=== PATIENT | female | born 1980 | race Caucasian/White ===

== ENCOUNTER 2021-09-23 13:30 | Observation (INO) | payer OTHER ==
--- NOTE | 2021-09-23 14:07 | XR ---
EXAMINATION TYPE: XR chest 2V DATE OF EXAM: 09/23/2021 COMPARISON: None HISTORY: Difficulty breathing TECHNIQUE: Frontal and lateral views of the chest are obtained. FINDINGS: There is no focal air space opacity, pleural effusion, or pneumothorax seen. The cardiac silhouette size is within normal limits. The osseous structures are intact. IMPRESSION: No acute cardiopulmonary process.
[2021-09-23 14:40] LABS: Basophils % (A) 0 %; Eosinophils # (A) 0.1 k/uL (0-0.7); Eosinophils % (A) 1 %; HCT 37.9 % (34.0-46.0); Lymphocytes # (A) 2.6 k/uL (1.0-4.8); Lymphocytes % (A) 20 %; MCHC 34.3 g/dL (31.0-37.0); MCV 90.4 fL (80.0-100.0); Monocytes # (A) 0.3 k/uL (0-1.0); Monocytes % (A) 2 %; Neutrophils # (A) 9.9 k/uL (1.3-7.7); Neutrophils % (A) 76 %; Platelet Count 268 k/uL (150-450); RBC 4.19 m/uL (3.80-5.40); RDW 12.5 % (11.5-15.5)
[2021-09-23 14:51] LABS: ALT 21 U/L (4-34); AST 42 U/L (14-36); African American GFR (CKD) >90 (>60 ml/min/1.73 sqM); Albumin 4.2 g/dL (3.5-5.0); Alkaline Phosphatase 58 U/L (38-126); Anion Gap 9 mmol/L; Blood Urea Nitrogen 17 mg/dL (7-17); Calcium 9.3 mg/dL (8.4-10.2); Carbon Dioxide 25 mmol/L (22-30); Chloride 104 mmol/L (98-107); Glucose 93 mg/dL (74-99); Non-African American GFR(CKD) >90 (>60 ml/min/1.73 sqM); Sodium 138 mmol/L (137-145); Total Bilirubin 0.4 mg/dL (0.2-1.3); Total Protein 7.2 g/dL (6.3-8.2)
[2021-09-23 15:01] LABS: INR 0.9 (<1.2); Partial Thromboplastin Time 22.2 sec (22.0-30.0); Prothrombin Time 9.8 sec (9.0-12.0)
--- NOTE | 2021-09-23 15:16 | ED ---
General Adult HPI - General Chief complaint: Shortness of Breath Stated complaint: Chest Pain, SOB Time Seen by Provider: 09/23/21 15:10 Source: patient Mode of arrival: ambulatory Limitations: no limitations - History of Present Illness Initial comments: Patient presents to the ED with her for evaluation. Patient states that she ran down the stairs to go to the gym this morning when she suddenly became dyspneic and could not catch her breath for a while, which is very unusual for her. Patient states that she also felt that her chest was diffusely tight at that time. Patient states that her symptoms persisted for a while, and continued at the gym, so she eventually decided to come to the emergency department. Patient states that her symptoms have now improved significantly, and she feels better. Patient denies any prior history of similar symptoms, and she denies any known lung or heart disease. Patient denies smoking or drug a buse. Patient denies trauma or injury, fever or chills, headache, focal neuro deficit, neck/arm/jaw/back pain, pleuritic pain, cough or cold symptoms, palpitations, dizziness, nausea/vomiting/diaphoresis, abdominal pain, diarrhea, dysuria or urinary symptoms, decreased urine output, leg or calf swelling or pain, or any other symptoms or complaints. Patient states that she is fully vaccinated against Covid. Patient does admit to OCP use. - Related Data Home Medications Medication Instructions Recorded Confirmed Biotin 5 mg PO DAILY 09/23/21 09/23/21 Cholecalciferol [Vitamin D3 (25 50 mcg PO DAILY 09/23/21 09/23/21 Mcg = 1000 Iu)] Elinest 0.3-30 Mg-Mcg 1 tab PO DAILY 09/23/21 09/23/21 Fish Oil/Dha/Epa [Fish Oil 1,200 1 cap PO DAILY 09/23/21 09/23/21 mg Fish Oil] Loratadine [Claritin] 10 mg PO DAILY 09/23/21 09/23/21 Turmeric Root Extract [Turmeric] 500 mg PO DAILY 09/23/21 09/23/21 Allergies Allergy/AdvReac Type Severity Reaction Status Date / Time No Known Allergies Allergy Verified 09/23/21 15:58 Review of Systems ROS Statement: Those systems with pertinent positive or pertinent negative responses have been documented in the HPI. ROS Other: All systems not noted in ROS Statement are negative. Past Medical History History of Any Multi-Drug Resistant Organisms: None Reported Additional Past Surgical History / Comment(s): left lower leg amputation Past Psychological History: No Psychological Hx Reported Smoking Status: Never smoker Past Alcohol Use History: Occasional Past Drug Use History: None Reported General Exam Limitations: no limitations General appearance: alert, in no apparent distress Head exam: Present: atraumatic, normocephalic Eye exam: Present: normal appearance, EOMI ENT exam: Present: mucous membranes moist Neck exam: Present: other (Trachea is in midline) Respiratory exam: Present: normal lung sounds bilaterally. Absent: respiratory distress, wheezes, rales, rhonchi, stridor, chest wall tenderness Cardiovascular Exam: Present: regular rate, normal rhythm, normal heart sounds, other (Normal radial pulses bilaterally) GI/Abdominal exam: Present: soft. Absent: distended, tenderness, guarding Extremities exam: Present: other (Negative Homans sign bilaterally). Absent: tenderness, pedal edema, calf tenderness Neurological exam: Present: alert, oriented X3. Absent: motor sensory deficit Psychiatric exam: Present: normal affect, normal mood Skin exam: Present: warm, dry, intact, normal color Course Vital Signs 09/23/21 13:33 Temperature 97.9 F Pulse Rate 69 Respiratory 18 Rate Blood Pressure 151/84 O2 Sat by Pulse 99 Oximetry - Reevaluation(s) Reevaluation #1: 09/23/21 18:24 Patient remains alert and breathing comfortably with a normal room air oxygen saturation. Patient denies development of any new symptoms while in the ED. Patient and are aware the patient's test results, and they both agree with initiating anticoagulation therapy and hospital admission at this time. 09/23/21 18:25 Case, H&P and test results were discussed with Dr. Cortez. She recommends IV heparin anticoagulation (over LMWH). She accepts hospital admission. She has no further recommendations at this time. EKG Findings - EKG Comments: EKG Findings:: Normal sinus rhythm, ventricular rate of 71 bpm, no ectopy, normal MD and QRS intervals, normal QT interval, normal axis, no ST or T-wave abnormality Medical Decision Making - Medical Decision Making Patient's CT angiogram chest with IV contrast demonstrates bilateral pulmonary emboli. Patient is however hemodynamically stable and not hypoxic. Dr. Cortez has accepted hospital admission. Heparin anticoagulation treatment was started in the ED. Patient and both agree with hospital admission at this time. - Lab Data Result diagrams: 09/23/21 14:21 09/23/21 14:21 Lab Results 09/23/21 09/23/21 12 Range/Units 14:21 14:21 14:21 WBC 13.0 H (3.8-10.6) k/uL RBC 4.19 (3.80-5.40) m/uL Hgb 13.0 (11.4-16.0) gm/dL Hct 37.9 (34.0-46.0) % MCV 90.4 (80.0-100.0) fL MCH 31.0 (25.0-35.0) pg MCHC 34.3 (31.0-37.0) g/dL RDW 12.5 (11.5-15.5) % Plt Count 268 (150-450) k/uL MPV 8.0 Neutrophils % 76 % Lymphocytes % 20 % Monocytes % 2 % Eosinophils % 1 % Basophils % 0 % Neutrophils # 9.9 H (1.3-7.7) k/uL Lymphocytes # 2.6 (1.0-4.8) k/uL Monocytes # 0.3 (0-1.0) k/uL Eosinophils # 0.1 (0-0.7) k/uL Basophils # 0.0 (0-0.2) k/uL PT 9.8 (9.0-12.0) sec INR 0.9 (<1.2) APTT 22.2 (22.0-30.0) sec D-Dimer (<0.60) mg/L FEU Sodium 138 (137-145) mmol/L Potassium 4.0 (3.5-5.1) mmol/L Chloride 104 (98-107) mmol/L Carbon Dioxide 25 (22-30) mmol/L Anion Gap 9 mmol/L BUN 17 (7-17) mg/dL Creatinine 0.74 (0.52-1.04) mg/dL Est GFR (CKD-EPI)AfAm >90 (>60 ml/min/1.73 sqM) Est GFR (CKD-EPI)NonAf >90 (>60 ml/min/1.73 sqM) Glucose 93 (74-99) mg/dL Calcium 9.3 (8.4-10.2) mg/dL Total Bilirubin 0.4 (0.2-1.3) mg/dL AST 42 H (14-36) U/L ALT 21 (4-34) U/L Alkaline Phosphatase 58 (38-126) U/L Troponin I (0.000-0.034) ng/mL Total Protein 7.2 (6.3-8.2) g/dL Albumin 4.2 (3.5-5.0) g/dL HCG, Qual 09/23/21 09/23/21 09/23/21 Range/Units 14:21 14:21 14:21 WBC (3.8-10.6) k/uL RBC (3.80-5.40) m/uL Hgb (11.4-16.0) gm/dL Hct (34.0-46.0) % MCV (80.0-100.0) fL MCH (25.0-35.0) pg MCHC (31.0-37.0) g/dL RDW (11.5-15.5) % Plt Count (150-450) k/uL MPV Neutrophils % % Lymphocytes % % Monocytes % % Eosinophils % % Basophils % % Neutrophils # (1.3-7.7) k/uL Lymphocytes # (1.0-4.8) k/uL Monocytes # (0-1.0) k/uL Eosinophils # (0-0.7) k/uL Basophils # (0-0.2) k/uL PT (9.0-12.0) sec INR (<1.2) APTT (22.0-30.0) sec D-Dimer 5.79 H (<0.60) mg/L FEU Sodium (137-145) mmol/L Potassium (3.5-5.1) mmol/L Chloride (98-107) mmol/L Carbon Dioxide (22-30) mmol/L Anion Gap mmol/L BUN (7-17) mg/dL Creatinine (0.52-1.04) mg/dL Est GFR (CKD-EPI)AfAm (>60 ml/min/1.73 sqM) Est GFR (CKD-EPI)NonAf (>60 ml/min/1.73 sqM) Glucose (74-99) mg/dL Calcium (8.4-10.2) mg/dL Total Bilirubin (0.2-1.3) mg/dL AST (14-36) U/L ALT (4-34) U/L Alkaline Phosphatase (38-126) U/L Troponin I <0.012 (0.000-0.034) ng/mL Total Protein (6.3-8.2) g/dL Albumin (3.5-5.0) g/dL HCG, Qual Not Detected - Radiology Data Radiology results: report reviewed (Chest x-ray: No acute cardiopulmonary process.) CT angiogram chest with IV contrast: Bilateral pulmonary emboli. There is filling defect in the right lower lobe pulmonary artery involving the lateral and posterior basal segment branches. There is also filling defect in the right upper lobe pulmonary artery. There is filling defect in the left lower lobe pulmonary artery in the lateral basal segment branch. No evidence of right heart strain. Disposition Clinical Impression: Bilateral pulmonary embolism Disposition: ADMITTED IP TO THIS [facility] Condition: Stable Is patient prescribed a controlled substance at d/c from ED?: No Referrals: Gray Henry MD [Primary Care Provider] - 1-2 days Time of Disposition: 18:42
[2021-09-23] MEDS ORDERED: SODIUM CHLORIDE 0.9% 500 ML 500 ML IV ONE (16:32)
--- NOTE | 2021-09-23 18:07 | CT ---
EXAMINATION TYPE: CT angio chest DATE OF EXAM: 09/23/2021 COMPARISON: None HISTORY: Dyspnea, chest pain and elevated d-dimer. CT DLP: 338.8 mGycm Automated exposure control for dose reduction was used. CONTRAST: Performed with IV Contrast, patient injected with 75ml mL of Isovue 370. Images obtained from the thoracic inlet to the diaphragm with IV contrast. There are 3-D post process ed images. The lungs are clear of consolidation. There is no evidence of a pulmonary mass. There is no mediastin al adenopathy. There are no hilar masses. There is no pleural effusion. There is no pericardial effus ion. There is intact thoracic aorta. There is no aneurysm or dissection. There is filling defect in the right lower lobe pulmonary artery involving the lateral and posterior basal segment branches. There is also filling defect in the right upper lobe pulmonary artery. There is filling defect in the left lower lobe pulmonary artery in the lateral basal segment branch. IMPRESSION: Bilateral pulmonary emboli as above. No evidence of right heart strain. This exam was discussed with emergency room attending staff at 6:00 PM.
[2021-09-23] MEDS ORDERED: HEPARIN SODIUM 1,000 UN/ML (10ML VL) IV ONE (18:42)
[2021-09-23] MEDS ORDERED: HEPARIN SODIUM 1,000 UN/ML (10ML VL) IV PRN (18:42)
[2021-09-23] MEDS ORDERED: HEPARIN SOD,PORK IN 0.45% NACL 25,000 UNIT in 0.45% NACL 1 250ML.BAG IV SCH (18:45)
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
[2021-09-24] MEDS ORDERED: APIXABAN 5 MG TAB PO SCH ×2 (09:00→21:00)
[2021-09-24 11:03] LABS: Basophils % (A) 1 %; Eosinophils # (A) 0.2 k/uL (0-0.7); Eosinophils % (A) 3 %; HCT 38.8 % (34.0-46.0); HGB 12.7 gm/dL (11.4-16.0); Lymphocytes # (A) 2.1 k/uL (1.0-4.8); Lymphocytes % (A) 29 %; MCH 30.2 pg (25.0-35.0); MCHC 32.7 g/dL (31.0-37.0); MCV 92.2 fL (80.0-100.0); Mean Platelet Volume 8.2; Monocytes # (A) 0.2 k/uL (0-1.0); Monocytes % (A) 3 %; Neutrophils # (A) 4.5 k/uL (1.3-7.7); Neutrophils % (A) 63 %; Platelet Count 289 k/uL (150-450); RBC 4.21 m/uL (3.80-5.40); RDW 12.5 % (11.5-15.5); WBC 7.2 k/uL (3.8-10.6)
[2021-09-24 11:11] LABS: ALT 20 U/L (4-34); AST 36 U/L (14-36); African American GFR (CKD) >90 (>60 ml/min/1.73 sqM); Albumin 3.8 g/dL (3.5-5.0); Alkaline Phosphatase 49 U/L (38-126); Anion Gap 7 mmol/L; Blood Urea Nitrogen 10 mg/dL (7-17); Calcium 9.2 mg/dL (8.4-10.2); Carbon Dioxide 26 mmol/L (22-30); Chloride 106 mmol/L (98-107); Glucose 63 mg/dL (74-99); Non-African American GFR(CKD) >90 (>60 ml/min/1.73 sqM); Potassium 4.2 mmol/L (3.5-5.1); Sodium 139 mmol/L (137-145); Total Bilirubin 0.5 mg/dL (0.2-1.3); Total Protein 6.7 g/dL (6.3-8.2)
[2021-09-24 11:39] VITALS: BP 104/68; PULSE 62; RESP 16; TEMP 98.1
[2021-10-01] MEDS ORDERED: APIXABAN 5 MG TAB PO SCH (09:00)
== END 2021-09-24 12:57 | disposition home or self-care (01) ==
LOC: EC 13:30 → 3SCARD 18:44
PROVIDERS: ADMIT Internal Medicine; ATTEND Internal Medicine
DX: I26.99 Other pulmonary embolism without acute cor pulmonale (principal); D72.829 Elevated white blood cell count, unspecified; Z20.822 Contact with and (suspected) exposure to COVID-19; Z79.3 Long term (current) use of hormonal contraceptives; Z79.899 Other long term (current) drug therapy; Z87.828 Personal history of other (healed) physical injury and trauma; Z89.512 Acquired absence of left leg below knee; Z83.49 Family history of other endocrine, nutritional and metabolic diseases
CPT/HCPCS: 96376; 96361; 96365; 96366 ×2; 99285; 36415; 93005; 85379; 80053 ×2; 84484; 85025 ×2; 85610; 85730 ×2; 84703; 87635; 71046; 71275; G0378 ×2; J1644 ×2; Q9967

== ENCOUNTER → 2022-01-02 | Day surgery (SDC) | payer BC, OTHER ==
[2021-12-28 12:47] VITALS: BMI 24.3
[~2022-01-02] MED LIST: BENZOCAINE SPRAY 1 CAN TOPICAL ONE; IV FLUID CONTINUATION 400 ML IV ONE; MIDAZOLAM 2 MG/2 ML VIAL IV ONE; fentaNYL (PF) 50 MCG/ML 2 ML AMP IV ONE; fentaNYL (PF) 50 MCG/ML 2 ML AMP ONE
[2022-01-02 11:41] LABS: HCT 38.6 % (34.0-46.0); HGB 12.6 gm/dL (11.4-16.0); MCH 30.3 pg (25.0-35.0); MCHC 32.6 g/dL (31.0-37.0); MCV 93.1 fL (80.0-100.0); Mean Platelet Volume 8.2; Platelet Count 287 k/uL (150-450); RBC 4.15 m/uL (3.80-5.40); RDW 13.5 % (11.5-15.5); WBC 6.2 k/uL (3.8-10.6)
[2022-01-02 11:51] LABS: African American GFR (CKD) >90 (>60 ml/min/1.73 sqM); Anion Gap 5 mmol/L; Blood Urea Nitrogen 9 mg/dL (7-17); Carbon Dioxide 26 mmol/L (22-30); Chloride 106 mmol/L (98-107); Non-African American GFR(CKD) >90 (>60 ml/min/1.73 sqM); Potassium 3.8 mmol/L (3.5-5.1); Sodium 137 mmol/L (137-145)
[2022-01-02 12:47] VITALS: RESP 14
--- NOTE | 2022-01-02 12:48 | P.PCN ---
Date of Procedure: 01/02/22 Operative Findings: TRANSESOPHAGEAL ECHOCARDIOGRAM VALVE GRINDER: JAKOB ELAM MD, RPVI INDICATION: Rule out atrial septal defect in this 41-year-old female patient underwent recently an echo which showed possible is diffuse right sided enlargement SEDATION: Conscious sedation COMPLICATION: None LEVEL OF SEDATION Moderate with sedation length of 11 minutes PROCEDURE DESCRIPTION: After obtaining an informed consent, the patient was brought to transesophageal echocardiogram room. Pulse oximetry and heart monitors were attached to the patient. The patient throat was sprayed using lidocaine. The patient was turned into left lateral position. After that a bite guard was placed. After an appropriate conscious sedation was initiated, the transesophageal echocardiogram was advanced through a bite guard into the mid esophagus. A 2-D echocardiogram images, color Doppler images, continuous wave images, pulse-wave images, of various cardiac structure were performed. After that the transesophageal echocardiogram probe was advanced into the stomach and fixed to obtain transgastric view was. The probe was brought into the mid esophagus. Inter-atrial septum was interrogated using 2D images, color Doppler images, and then contrast study. After that transesophageal echocardiogram was withdrawn out and upon withdrawing the descending thoracic aorta all the way up to the arch was evaluated. FINDING: The left ventricular dimension and systolic function appeared to be within normal limits. EF appears to be in the range of 50-55%. The right ventricle appeared to be mildly dilated with normal function. Left atrium appears to be within normal limits for the mention mid left atrial appendage appeared to be free from any thrombus. The interatrial septum appeared to be hyperdynamic without any evidence of ASD or PFO. The right atrium appeared to be dilated. The aortic valve is trileaflet valve without stenosis with mild insufficiency. Aortic root appeared to be mildly dilated at 4.0 cm. The mitral valve seems to be normal with mild MR. Normal tricuspid valve and pulmonic valve. CONCLUSION: 1. Hyperdynamic interatrial septum without any evidence of PFO or ASD on multiple contrast injection as well as color flow Doppler 2. Dilated right ventricle with normal function 3. Normal left ventricular dimension and systolic function 4. Normal left atrial appendage. 5. Normal mitral valve leaflets with mild MR 6. Normal tricuspid valve and pulmonic valve
[2022-01-02 13:15] VITALS: TEMP 98.7
[2022-01-02 13:56] VITALS: BP 106/64; PULSE 70
== END ==
LOC: CATHCVL 10:58
PROVIDERS: ATTEND Internal Medicine Interventional Cardiology
DX: I51.7 Cardiomegaly (principal); R93.1 Abnormal findings on diagnostic imaging of heart and coronary circulation; Z89.512 Acquired absence of left leg below knee; I73.9 Peripheral vascular disease, unspecified; Z20.822 Contact with and (suspected) exposure to COVID-19; Z82.49 Family history of ischemic heart disease and other diseases of the circulatory system; I45.10 Unspecified right bundle-branch block; Z86.711 Personal history of pulmonary embolism; Z79.01 Long term (current) use of anticoagulants
CPT/HCPCS: 93320; 93312; 93325; 80051; 82565; 84520; 85027; 81025; 87635; J2250; J3010

== ENCOUNTER → 2022-01-30 | Outpatient (CLI) | payer BC ==
--- NOTE | 2022-01-30 16:59 | CT ---
EXAMINATION TYPE: CT angio chest CT DLP: 175.10 mGycm, Automated exposure control for dose reduction was used. DATE OF EXAM: 01/30/2022 8:35 AM COMPARISON: CT chest 09/23/2021, Chest radiograph 09/23/2021. CLINICAL INDICATION:Female, 41 years old with history of I26.99 pulmonary embolism; H/O Pulmonary Emb olism TECHNIQUE/CONTRAST: CTA scan of the thorax is performed with IV Contrast, patient injected with 71 mL of Isovue 370, pulm onary embolism protocol. MIP images are created and reviewed. FINDINGS: Pulmonary Artery: There has been been interval resolution of prior pulmonary emboli. There is no evid ence for a filling defect within the pulmonary vasculature to suggest acute pulmonary embolism. The pulmonary artery is of normal size. Lungs/Pleura: No evidence of focal consolidation, pleural effusion or pneumothorax. Unchanged left lo wer lobe peripheral 2 mm nodule (series 5 image 109). Airway: Large airways are patent. Heart: Within normal limits for size.. Vasculature: No evidence of aortic aneurysm. Mediastinum: No gross evidence of adenopathy. Musculoskeletal: No acute osseous abnormalities Soft Tissues: Unremarkable. Lower neck: No significant findings. Upper Abdomen: No significant findings. IMPRESSION: Resolution of prior pulmonary emboli without evidence for new acute pulmonary embolism.
== END | disposition home or self-care (01) ==
LOC: RADCTMAIN 07:47
PROVIDERS: ATTEND Family Medicine
DX: I26.99 Other pulmonary embolism without acute cor pulmonale (principal)
CPT/HCPCS: 71275; Q9967

== ENCOUNTER → 2023-12-03 | Outpatient (CLI) | payer BC ==
--- NOTE | 2023-12-03 09:52 | MM ---
Reason for Exam: Follow-up at short interval from prior study. Last screening mammogram was performed 12 month(s) ago. Patient History: Menarche at age 14. Patient has no children. Premenopausal. Hormonal Contraceptives, from age 22 until age 41. Maternal aunt had breast cancer, age 63. Risk Values: Roopa 5 year model risk: 0.7%. NCI Lifetime model risk: 11.0%. Tissue Density: The breast tissue is heterogeneously dense. This may lower the sensitivity of mammography. Findings: Analyzed By CAD. Asymmetric density central inner aspect of the left breast CC view middle depth does not persist on spot compression view. Tiny circumscribed less than 5 mm nodule has a somewhat reniform appearance on 3-D images medial posterior right breast, possible intramammary lymph node. Additional medial nodularity in the middle depth remains unchanged. The previously described nodularity lateral aspect anterior depth is no longer seen. Overall Assessment: Incomplete: need additional imaging evaluation, BI-RAD 0 Management: Diagnostic Breast Ultrasound of the right breast. Electronically signed and approved by: Jerrod Hsieh M.D. Radiologist
--- NOTE | 2023-12-03 10:23 | USB ---
Reason for Exam: Follow-up at short interval from prior study. Patient History: Menarche at age 14. Patient has no children. Premenopausal. Hormonal Contraceptives, from age 22 until age 41. Maternal aunt had breast cancer, age 63. Risk Values: Roopa 5 year model risk: 0.7%. NCI Lifetime model risk: 11.0%. Technique: Method: Whole Breast Handheld. Prior Study Comparison: 11/23/2022 Bilateral MG 3D screening mammo w/cad, [facility]. Findings: The whole breast of the right breast, the axilla of the right breast and the retroareolar of the right breast were scanned. A complete US of all four quadrants of the breast, axilla, and retro-areolar region were reviewed. At the 12:00 position, redemonstrated tiny 4 mm cyst, a millimeter larger from prior, 3 cm from the nipple. Redemonstrated 2:00 position, 4 cm from the nipple, 9 x 6 x 5 mm cyst cluster (versus 8 x 7 x 4 mm, previously). Suspect a mammographic correlate. Tiny 4 mm hypoechoic area too small to characterize, possible deep cyst 1:00 position, 4 cm from the nipple, suspected mammographic correlate Redemonstrated 9:00 position, 3 cm from the nipple, oval, circumscribed, heterogeneous area measuring 1.6 x 1.3 x 0.4 cm, unchanged for one year. Ongoing short interval follow-up recommended. No other solid or cystic lesion or axillary lymphadenopathy. Overall Assessment: Probably benign, BI-RAD 3 Management: Diagnostic Mammogram of the right breast in 6 months. Diagnostic Breast Ultrasound of the right breast in 6 months. For ultrasound, particular attention to the 9:00 position (total 1.5 year follow-up). A clinical breast exam by your physician is recommended on an annual basis and results should be correlated with mammographic findings. This exam should not preclude additional follow-up of suspicious palpable abnormalities. Results were given to the patient verbally at the time of exam. Electronically signed and approved by: Jerrod Hsieh M.D. Radiologist
== END | disposition home or self-care (01) ==
LOC: RADMAMWWP 08:51
PROVIDERS: ATTEND Family Medicine
DX: N60.01 Solitary cyst of right breast (principal); R92.333 Mammographic heterogeneous density, bilateral breasts; Z80.3 Family history of malignant neoplasm of breast
CPT/HCPCS: 77062; 77066

== ENCOUNTER → 2024-05-01 | Outpatient (CLI) | payer BC ==
--- NOTE | 2024-05-01 09:58 | US ---
EXAMINATION TYPE: US venous doppler duplex LE RT DATE OF EXAM: 05/01/2024 9:42 AM COMPARISON: NONE CLINICAL INDICATION: Female, 43 years old with history of M79.609 PAIN IN LIMB; Area of pain and swel ling right medial lower thigh SIDE PERFORMED: Right TECHNIQUE: The lower extremity deep venous system is examined utilizing real time linear array sonog dave with graded compression, doppler sonography and color-flow sonography. VESSELS IMAGED: Common Femoral Vein Deep Femoral Vein Greater Saphenous Vein * Femoral Vein Popliteal Vein Small Saphenous Vein * Proximal Calf Veins (* superficial vessels) Right Leg: Appears negative for DVT Thrombus seen within superficial vein right medial lower thigh at patient's area of concern. No color flow identified. Noncompressible. IMPRESSION: 1. No ultrasound evidence of deep venous thrombosis of the right lower extremity. 2. Superficial venous thrombosis identified within the right medial lower thigh at patient's area of concern.
== END | disposition home or self-care (01) ==
LOC: RADUSWWP 09:22
PROVIDERS: ATTEND Family Medicine
DX: I82.890 Acute embolism and thrombosis of other specified veins (principal); I82.491 Acute embolism and thrombosis of other specified deep vein of right lower extremity

== ENCOUNTER → 2024-08-05 | Outpatient (CLI) | payer BC ==
--- NOTE | 2024-08-05 13:34 | MM ---
Reason for Exam: Follow-up at short interval from prior study. Last screening mammogram was performed 8 month(s) ago. Patient History: Menarche at age 14. Patient has no children. Premenopausal. Hormonal Contraceptives, from age 22 until age 41. Maternal aunt had breast cancer, age 63. Risk Values: Roopa 5 year model risk: 0.7%. NCI Lifetime model risk: 11.0%. Prior Study Comparison: 11/23/2022 Bilateral MG 3D screening mammo w/cad, [facility]. 12/03/2023 Bilateral MG 3D diag mammo w/cad [facility], [facility]. Tissue Density: Right: The breasts are heterogeneously dense, which may obscure small masses. Findings: Analyzed By CAD. Redemonstrated underlying nodular asymmetric density in one of these located posterior medial aspect has enlarged in the interval, currently 6 mm versus 4 mm, previously. Other areas of asymmetric density remain unchanged. Reassessed by ultrasound. Overall Assessment: Incomplete: need additional imaging evaluation, BI-RAD 0 Management: Diagnostic Breast Ultrasound of the right breast. [facility], , 08/05/2024 1:32 PM. Electronically signed and approved by: Jerrod Hsieh M.D. Radiologist
--- NOTE | 2024-08-05 14:31 | USB ---
Reason for Exam: Additional evaluation requested from abnormal screening. Patient History: Menarche at age 14. Patient has no children. Premenopausal. Hormonal Contraceptives, from age 22 until age 41. Maternal aunt had breast cancer, age 63. Risk Values: Roopa 5 year model risk: 0.7%. NCI Lifetime model risk: 11.0%. Technique: Method: Targeted. Prior Study Comparison: 11/23/2022 Bilateral MG 3D screening mammo w/cad, [facility]. 12/03/2023 Bilateral MG 3D diag mammo w/cad [facility], [facility]. Findings: The upper section of the breast of the right breast, the axilla of the right breast and the retroareolar of the right breast were scanned. A complete US of all four quadrants of the breast, axilla, and retro-areolar region were reviewed. At the 12:00 position, 3 cm from the nipple, there is a stable 4 mm cyst. At the 1:00 position, 2 cm from the nipple, there is a stable 5 mm deep cyst. Possible mammographic correlate, however, we note that it has not increased in size by ultrasound. Mammographic follow-up recommended. At the 2:00 position, 4 cm from the nipple, there is a complex cystic nodule measuring 8 x 7 x 4 mm, stable for 1.5 years. Ongoing follow-up to demonstrate 2 years of stability. At the 9:00 position, 3 cm from the nipple, there is a 9 x 7 x 3 mm lesion which appears overall smaller. However, now it has the appearance of a cyst with internal nodule and should be reassessed at follow-up. No other solid or cystic lesion or axillary lymphadenopathy. Overall Assessment: Probably benign, BI-RAD 3 Management: Diagnostic Mammogram of both breasts in 4 months. Diagnostic Breast Ultrasound of the right breast in 4 months. Total 1 year follow-up right breast and annual exam of the left breast. Particular attention to the posterior medial nodular asymmetry on mammogram. A clinical breast exam by your physician is recommended on an annual basis and results should be correlated with mammographic findings. This exam should not preclude additional follow-up of suspicious palpable abnormalities. Results were given to the patient verbally at the time of exam. [facility], , 08/05/2024 2:27 PM. Electronically signed and approved by: Jerrod Hsieh M.D. Radiologist
== END | disposition home or self-care (01) ==
LOC: RADMAMWWP 12:58
PROVIDERS: ATTEND Family Medicine
DX: R92.8 Other abnormal and inconclusive findings on diagnostic imaging of breast
CPT/HCPCS: 77061; 77065

== ENCOUNTER → 2024-11-30 | Outpatient (CLI) | payer BC ==
--- NOTE | 2024-11-30 09:06 | MM ---
Reason for Exam: Follow-up at short interval from prior study. Last screening mammogram was performed 12 month(s) ago. Patient History: Menarche at age 14. Patient has no children. Premenopausal. Hormonal Contraceptives, from age 22 until age 41. Maternal aunt had breast cancer, age 63. Last menstrual period: 11/03/2024 Risk Values: Roopa 5 year model risk: 0.7%. NCI Lifetime model risk: 10.9%. Tissue Density: The breasts are heterogeneously dense, which may obscure small masses. Findings: Analyzed By CAD. Similar-appearing areas compared to 12/03/2023 and 08/05/2024 both the right and left breast. She'll be followed up with ultrasound same day. No new suspicious masses, calcifications or distortions. Overall Assessment: Incomplete: need additional imaging evaluation, BI-RAD 0 Management: Diagnostic Breast Ultrasound of the right breast. Results were given to the patient verbally at the time of exam. Patient should continue monthly self-breast exams. A clinical breast exam by your physician is recommended on an annual basis. This exam should not preclude additional follow-up of suspicious palpable abnormalities. Note on Roopa scores and lifetime risk: 1. A Roopa score greater than 3% is considered moderate risk. If this is the case, consider specialist referral to assess eligibility for a risk reducing agent. 2. If overall lifetime risk for the development of breast cancer is 20% or higher, the patient may qualify for future screening with alternating mammogram and breast MRI. [facility], , 11/30/2024 9:02 AM. Electronically signed and approved by: Mattihas Gann DO
--- NOTE | 2024-11-30 09:37 | USB ---
Reason for Exam: Follow-up at short interval from prior study. Patient History: Menarche at age 14. Patient has no children. Premenopausal. Hormonal Contraceptives, from age 22 until age 41. Maternal aunt had breast cancer, age 63. Risk Values: Roopa 5 year model risk: 0.7%. NCI Lifetime model risk: 10.9%. Technique: Method: Targeted. Prior Study Comparison: 11/23/2022 Bilateral MG 3D screening mammo w/cad, [facility]. 12/03/2023 Bilateral MG 3D diag mammo w/cad [facility], [facility]. 08/05/2024 Right MG 3D diag mammo w/cad RT, [facility]. Findings: The upper inner quadrant of the right breast, the axilla of the right breast and the retroareolar of the right breast were scanned. Technique utilized:US breast limited RT Image; Ultrasound imaging of: Area of concern, retroareolar region and axilla. Stable appearance of the right breast probable cluster of cysts at 2:00 4 cm from the nipple measuring up to 7 mm, anechoic cyst at 1:00 2 cm from the nipple measuring up to 5 mm, 12:00 3 cm from the nipple anechoic cyst measuring up to 4 mm. No evidence for organizing fluid collection or mass. Overall Assessment: Benign, BI-RAD 2 Management: Screening Mammogram of both breasts in 1 year. A clinical breast exam by your physician is recommended on an annual basis and results should be correlated with mammographic findings. This exam should not preclude additional follow-up of suspicious palpable abnormalities. Results were given to the patient verbally at the time of exam. [facility], , 11/30/2024 9:33 AM. Electronically signed and approved by: Matthias Gann DO
== END | disposition home or self-care (01) ==
LOC: RADMAMWWP 08:33
PROVIDERS: ATTEND Family Medicine
DX: R92.8 Other abnormal and inconclusive findings on diagnostic imaging of breast (principal); R92.333 Mammographic heterogeneous density, bilateral breasts; Z80.3 Family history of malignant neoplasm of breast
CPT/HCPCS: 77062; 77066